=== PATIENT | male | born 1960 | race Caucasian/White ===

== ENCOUNTER → 2016-12-17 | Outpatient (CLI) | payer OTHER ==
[2016-12-17 12:47] LABS: HEMATOCRIT 50.9 % (39.2-51.8); WHITE BLOOD COUNT 6.5 x10^3/uL (3.4-10)
[2016-12-17 13:11] LABS: ASPARTATE AMINO TRANSFERASE 22 U/L (15-37); BLOOD UREA NITROGEN 25 mg/dL (7-18)
== END | disposition home or self-care (01) ==
LOC: CFH 07:49
PROVIDERS: ATTEND Surgery
DX: N28.9 Disorder of kidney and ureter, unspecified (principal)
CPT/HCPCS: 36415; 76700; 80053; 85025

== ENCOUNTER → 2017-01-07 | Outpatient (CLI) | payer OTHER ==
[2017-01-07 16:05] LABS: HEMATOCRIT 49.4 % (39.2-51.8); HEMOGLOBIN 16.6 g/dL (13.7-18.0)
[2017-01-07 16:14] LABS: BLOOD UREA NITROGEN 29 mg/dL (7-18)
[2017-01-07 16:18] LABS: ASPARTATE AMINO TRANSFERASE 12 U/L (15-37)
== END | disposition home or self-care (01) ==
LOC: LAB 15:40
PROVIDERS: ATTEND Internal Medicine Nephrology
DX: I12.9 Hypertensive chronic kidney disease with stage 1 through stage 4 chronic kidney disease, or unspecified chronic kidney disease (principal); N18.3 Chronic kidney disease, stage 3 (moderate); N25.81 Secondary hyperparathyroidism of renal origin; D64.9 Anemia, unspecified; E87.2 Acidosis
CPT/HCPCS: 36415; 80053; 81003; 84100; 85025

== ENCOUNTER → 2017-07-17 | Outpatient (CLI) | payer OTHER ==
[2017-07-17 15:44] LABS: BASOPHILS # (AUTO) 0.05 x10^3/uL (0-0.1); BASOPHILS % (AUTO) 1 % (0-1); EOSINOPHILS # (AUTO) 0.32 x10^3/uL (0-0.4); EOSINOPHILS % (AUTO) 4 % (1-7); LYMPHOCYTES # (AUTO) 1.96 x10^3/uL (1-3.4); LYMPHOCYTES % (AUTO) 27 % (22-44); MD NO; MEAN CORPUSCULAR HEMOGLOBIN 29.5 pg (27.5-34.5); MEAN CORPUSCULAR VOLUME 86.7 fL (81-97); MEAN PLATELET VOLUME 7.5 fL (7.4-10.4); MONOCYTES % (AUTO) 10 % (2-9); NEUTROPHILS # (AUTO) 4.22 x10^3/uL (1.8-6.8); NEUTROPHILS % (AUTO) 58 % (42-75); PLATELET COUNT 323 x10^3/uL (130-400); RED BLOOD COUNT 5.41 x10^6/uL (4.38-5.82)
[2017-07-17 15:49] LABS: MICROSCOPIC NOT IND
[2017-07-17 15:51] LABS: CULTURE INDICATED? NO
[2017-07-17 15:55] LABS: ALANINE AMINOTRANSFERASE 29 U/L (12-78); ALBUMIN 3.3 g/dL (3.4-5.0); ANION GAP 5 mmol/L (5-15); CALCIUM 8.8 mg/dL (8.5-10.1); CHLORIDE 107 mmol/L (98-107); CREATININE 1.48 mg/dL (0.7-1.3)
[2017-07-17 15:57] LABS: ALKALINE PHOSPHATASE 61 U/L (45-117); BILIRUBIN,TOTAL 0.6 mg/dL (0.2-1.0); TOTAL PROTEIN 6.7 g/dL (6.4-8.2)
== END | disposition home or self-care (01) ==
LOC: LAB 15:13
PROVIDERS: ATTEND Internal Medicine Nephrology
DX: I12.9 Hypertensive chronic kidney disease with stage 1 through stage 4 chronic kidney disease, or unspecified chronic kidney disease (principal); N18.3 Chronic kidney disease, stage 3 (moderate)
CPT/HCPCS: 36415; 80053; 81003; 85025

== ENCOUNTER → 2017-09-12 | Outpatient (CLI) | payer OTHER ==
[2017-09-12 16:51] LABS: ALANINE AMINOTRANSFERASE 35 U/L (12-78); ALBUMIN 3.4 g/dL (3.4-5.0); ANION GAP 4 mmol/L (5-15); CALCIUM 8.3 mg/dL (8.5-10.1); CHLORIDE 107 mmol/L (98-107)
[2017-09-12 16:53] LABS: ALKALINE PHOSPHATASE 76 U/L (45-117); BILIRUBIN,TOTAL 0.4 mg/dL (0.2-1.0); TOTAL PROTEIN 6.8 g/dL (6.4-8.2)
== END ==
LOC: LAB 16:10
PROVIDERS: ATTEND Physician Assistant
DX: C64.9 Malignant neoplasm of unspecified kidney, except renal pelvis (principal)
CPT/HCPCS: 36415; 80053

== ENCOUNTER 2018-06-09 10:36 | Outpatient (CLI) | payer OTHER | END 2018-06-09 23:59 | disposition home or self-care (01) | LOC: CARD 10:36 | PROVIDERS: ATTEND Internal Medicine Cardiovascular Disease | DX: I47.9 Paroxysmal tachycardia, unspecified (principal) | CPT/HCPCS: 93017; 93350 ==

== ENCOUNTER → 2019-02-04 | Outpatient (CLI) | payer OTHER ==
[~2019-02-04] MED LIST: PANT40TA5 PO; [UNRECOGNIZED DRUG - CODE] INJ
== END | disposition home or self-care (01) ==
LOC: STAR 14:59
PROVIDERS: ATTEND Surgery
DX: Z01.818 Encounter for other preprocedural examination (principal); K80.10 Calculus of gallbladder with chronic cholecystitis without obstruction
CPT/HCPCS: 93005

== ENCOUNTER 2019-02-11 08:55 | Day surgery (SDC) | payer OTHER ==
[~2019-02-11] VITALS: Ht 185.4 cm; Wt 85.0 kg
[~2019-02-11 08:55] MED LIST changes: +BUPIVACAINE/EPI 0.5% 1:200K ONE
[2019-02-11 09:17] VITALS: BP 134/83
[2019-02-11] MEDS ORDERED: LACTATED RINGERS 1,000 ML IV SCH (09:19)
[2019-02-11] MEDS ORDERED: GABAPENTIN 300 MG CAPSULE PO ONE (10:00)
[2019-02-11] MEDS ORDERED: ACETAMINOPHEN 500 MG TABLET PO ONE (10:00)
[2019-02-11] MEDS ORDERED: ONDANSETRON 2MG/ML, 2ML IVPush ONE (10:00)
[2019-02-11] MEDS ORDERED: SCOPOLAMINE PATCH, 1.5MG PATCH.TD72 TD ONE (10:00)
[2019-02-11] MEDS ORDERED: INDOCYANINE GREEN 25 MG VIAL ONE (10:12)
[2019-02-11] MEDS ORDERED: INDOCYANINE GREEN 25 MG VIAL IVPush ONE (10:30)
[2019-02-11] MEDS ORDERED: MIDAZOLAM 1 MG/ML, 2ML ONE (10:42)
[2019-02-11] MEDS ORDERED: FENTANYL PF 250 MCG/5ML ONE (10:42)
[2019-02-11] MEDS ORDERED: hydrALAzine 20 MG/ML, 1ML IV PRN (11:30)
[2019-02-11] MEDS ORDERED: MEPERIDINE/PF 25MG/0.5ML IVPush PRN (11:30)
[2019-02-11] MEDS ORDERED: LABETALOL 5MG/ML, 20ML IV PRN (11:30)
[2019-02-11] MEDS ORDERED: OXYcodone 5 MG/5 ML ORAL.SOL UDC PO PRN (11:30)
[2019-02-11] MEDS ORDERED: PROMETHAZINE 25 MG/ML, 1ML IV PRN (11:30)
[2019-02-11] MEDS ORDERED: KETOROLAC 30 MG/1 ML IV PRN (11:30)
[2019-02-11] MEDS ORDERED: ACETAMINOPHEN 325 MG TABLET PO PRN (11:30)
[2019-02-11] MEDS ORDERED: DIAZEPAM 5 MG/ML, 2ML IVPush PRN (11:30)
[2019-02-11] MEDS ORDERED: ALBUTEROL SULFATE 2.5 MG/3 ML NPPB PRN (11:30)
[2019-02-11] MEDS ORDERED: HYDROmorphone 2 MG/ML, 1ML IVPush PRN (11:30)
[2019-02-11] MEDS ORDERED: ROCURONIUM 10MG/ML,5ML ONE ×2 (11:47)
[2019-02-11] MEDS ORDERED: GLYCOPYRROLATE 0.2MG/1ML, 5ML ONE (11:47)
[2019-02-11] MEDS ORDERED: PROPOFOL 10 MG/ML, 20ML ONE (11:47)
[2019-02-11] MEDS ORDERED: DEXAMETHASONE 4 MG/ML, 1ML ONE (11:47)
[2019-02-11] MEDS ORDERED: SUGAMMADEX 200 MG/2 ML IVPush ONE (11:47)
[2019-02-11] MEDS ORDERED: NEOSTIGMINE 1 MG/ML, 10ML ONE (11:47)
[2019-02-11] MEDS ORDERED: SUCCINYLCHOLINE 20 MG/ML, 10ML ONE (11:47)
[2019-02-11] MEDS ORDERED: ONDANSETRON 2MG/ML, 2ML ONE (11:47)
[2019-02-11] MEDS ORDERED: CEFAZOLIN 1,000 MG ONE (11:47)
[2019-02-11] MEDS ORDERED: OXYcodone 5 MG/5 ML ORAL.SOL UDC ONE (12:23)
[2019-02-11] MEDS ORDERED: hydrALAzine 20 MG/ML, 1ML ONE (12:23)
[2019-02-11] MEDS ORDERED: KETOROLAC 30 MG/1 ML ONE (12:23)
[2019-02-11] MEDS ORDERED: FENTANYL PF 100 MCG/2ML ONE (12:23)
[2019-02-11] MEDS ORDERED: PROMETHAZINE 25 MG/ML, 1ML ONE (12:23)
[2019-02-11] MEDS: FENTANYL PF 100 MCG/2ML IV PRN ×2 (12:36→12:45)
== END 2019-02-11 15:35 | disposition home or self-care (01) ==
LOC: OUT 08:55
PROVIDERS: ATTEND Surgery
DX: K81.1 Chronic cholecystitis (principal); K82.8 Other specified diseases of gallbladder; K42.9 Umbilical hernia without obstruction or gangrene; Z79.899 Other long term (current) drug therapy; Z85.528 Personal history of other malignant neoplasm of kidney; Z90.5 Acquired absence of kidney; Z98.890 Other specified postprocedural states
CPT/HCPCS: 47562; 88304; J0360; J0690; J1100; J1885; J2250; J2405; J2550; J2704; J3010; J7120; J2710; J0330